=== PATIENT | female | born 1935 | race Caucasian/White ===

== ENCOUNTER 2016-12-12 12:27 | Inpatient (IN) | payer MEDICARE, MEDICAID ==
[~2016-12-12] VITALS: Ht 152.4 cm; Wt 46.8 kg
--- NOTE | ~2016-12-12 | OR ---
ADMIT: 12/12/2016 RM/LOC: 532 [facility] MR#: [id number] [address] [address] SAVITA CLARK [address] [place] [address] Operative/Delivery Room Report SEX: F AGE: 81 : 1935 SURGERY DATE: 12/14/2016 SURGEON: Sophie Maloney MD PREOPERATIVE DIAGNOSIS: Left femoral neck fracture. POSTOPERATIVE DIAGNOSIS: Left femoral neck fracture. PROCEDURE: Left hip bipolar hemiarthroplasty. JAR FILLER: BELINDA Hunter ANESTHESIA: General. ESTIMATED BLOOD LOSS: 150 mL. SPECIMEN: Bone. COMPLICATIONS: None. IMPLANT: DePuy #2 press-fit fracture stem, 41 mm bipolar head with a 1.5 mm neck length. PROCEDURE IN DETAIL: This patient was brought to the operating room. After satisfactory level of anesthesia was achieved, she was positioned on the operative table in a right lateral decubitus position. After padding of all bony prominences and an axillary roll under the right axilla, the left hip was then circumferentially prepped and draped in the usual sterile fashion. After the appropriate time-out, a lateral approach to the hip was made carrying a skin incision to the base of the greater trochanter proximal to the trochanter and dissection was then carried through the subcutaneous tissue and the tensor fascia was opened. The anterior third of the abductors were then removed from the greater trochanter using subperiosteal dissection. The capsule was split superiorly and then this flap of soft tissue was reflected anteriorly off the femoral neck. The femoral head was removed from the acetabulum, and the acetabulum irrigated of all bone debris. The head measured 41 mm. Our initial neck cut was made. Then, using the flexible reamers, I opened the femoral canal not really cutting any cortex until I got about 12 mm and then very little with 13 mm. I then used a rigid reamer and tried both a #1 femoral broach and a #2 femoral broach. The #2 femoral broach gave us the best fill of the proximal femur was very tight. I used a calcar reamer to ream the calcar. Then using a 1.5 neck length and a 41 mm head, I reduced the hip and found it ADMIT: 12/12/2016 RM/LOC: 532 [facility] MR#: [id number] [address] [address] [place] [address] Operative/Delivery Room Report SEX: F AGE: 81 : 1935 to be very stable. There was good soft tissue tension. I could distract the hip from the acetabulum a couple millimeters. I then dislocated my trial, removed all trial components, thoroughly irrigated the hip, then seated a #2 press-fit fracture stem with a 41 mm bipolar and a 1.5 neck length. Once again, the hip was reduced, found to be very stable throughout a full range of motion. Then, the capsule superiorly was closed with interrupted #5 Ethibond. The abductors repaired with #5 Ethibond through bone tunnels in the trochanter. A drain was placed deep to the tensor fascia and the tensor fascia closed with a combination of interrupted #1 Vicryl and running #2 Quill suture. Subcutaneous tissue was then reapproximated with 2-0 Vicryl, the skin with javier. After sterile dressing was applied to the wound, the patient was then transferred from the operative suite in stable condition. Sophie Maloney MD/ sheree JOB #: [id number] CC: Nikhil Fontenot, Attending Physician Nikhil Fontenot, Family Physician
--- NOTE | ~2016-12-12 | ECH ---
Transthoracic Echocardiography Report (TTE) Demographics Patient Name SAVITA CLARK Date of Study 12/13/2016 Patient Number [id number] Visit Number [id number] Date of 1935 Room Number 302 Gender Female Number Age 81 year(s) Referring Corie Obrien Mail Officer Mary Jodi [facility] Physician Trevor Yates MD Physician Interpreting Miles MCKINNEY [facility] Physician Williams Supervising Ordering King Corey Marcelo MD, MD/MLP Physician Nurse Stress Tumbler Drier Operator Conclusions Contractility Score Summary At rest the following contractility abnormalities were noted: Hypokinesis of the Mid herb-lateral, the Mid anterior, the Mid herb-septal, the Mid infero-septal, the Basal herb-septal, the Basal infero-septal, the Apical anterior, the Basal anterior and the Basal herb-lateral segments; Akinesis of the Mid inferior, the Mid infero-lateral, the Basal infero-lateral, the Apical inferior, the Apical septal, the Apical lateral, the Basal inferior and the Apical cap segments. Summary Technically difficult exam to perform, patient supine with left hip fracture. Images obtained are of fair quality. The estimated left ventricular ejection fraction is 25-30%. Segmental wall motion abnormalities noted. The left ventricle is mildly dilated . Mild concentric left ventricular hypertrophy. Diastolic function indeterminate due to patient's arrhythmia. The left atrium is severely dilated by LA volume index measurement. Mild mitral regurgitation by color Doppler. There is mild aortic regurgitation by color Doppler. Mild tricuspid regurgitation by color Doppler. There is moderate pulmonary hypertension. The pulmonary pressure (RVSP) is 59 mmHg. Recommendation The patient was given the results of the exam during their hospital stay. Procedure Type of Study TTE procedure:Echo Complete SF. Procedure Date Date: 12/13/2016 Start: 12:00 AM Technical Quality: Fair due to patient immobility. Indications:Pre surgical clearance, cardiomyopathy, unspecified and Congestive heart failure. Appropriate Use Criteria: 9 Height: 60 inches Weight: 95 pounds BSA: 1.36 m Rhythm: Within normal limits HR: 93 bpm BP: 153/65 mmHg M-Mode/2D Measurements LV Diastolic Dimension: 5.42 cm LV Systolic Dimension: 4.45 cm LV Septum Diastolic: 0.97 cm LV PW Diastolic: 1.07 cm AO Root Dimension: 2.5 cm Cardiac Output: 3.04 l/min LA Dimension: 4.39 cm Cardiac Index: 2.24 l/min*m LA volume index: 60 ml/m LVOT: 1.65 cm RV Base: 3.17 cm LVOT VTI: 15.29 cm RV Mid: 2.47 cm LV Stroke volume: 32.68 ml LV Stroke volume index: 24.03 ml/m Doppler Measurements AV Peak Velocity: 1.26 m/s MV Peak E-Wave: 1.22 m/s AV Peak Gradient: 6.35 mmHg AV Mean Gradient: 2.87 mmHg LVOT Peak Velocity: 0.86 m/s AV Area (Continuity):1.37 cm PV Peak Velocity: 1.03 m/s TR Velocity:3.69 m/s PV Peak Gradient: 4.22 mmHg TR Gradient:54.46 mmHg Estimated PASP: 59.46 mmHg Estimated RAP:5 mmHg Estimated RVSP: 59 mmHg RA Area: 16.06 cm Findings Left Ventricle The left ventricle is mildly dilated . Mild concentric left ventricular hypertrophy. Diastolic function indeterminate due to patient's arrhythmia. Right Ventricle Normal right ventricle structure and function. Left Atrium The left atrium is severely dilated by LA volume index measurement. Right Atrium Normal right atrial size. Mitral Valve Mild mitral annular calcification. Mild mitral regurgitation by color Doppler. Aortic Valve The aortic valve is mildly sclerotic. There is mild aortic regurgitation by color Doppler. Tricuspid Valve Normal tricuspid valve structure and function. Mild tricuspid regurgitation by color Doppler. There is moderate pulmonary hypertension. The pulmonary pressure (RVSP) is 59 mmHg. Pulmonic Valve Normal pulmonic valve structure and function. Pericardial Effusion No evidence of pericardial effusion. Miscellaneous Visualized portions of the aortic root and ascending aorta appear normal in size. Pleural Effusion No evidence of pleural effusion. Contractility Score LV regional wall motion:(0-Non visualized 1-Normal 2-Hypokinesis 3-Akinesis 4-Dyskinesis 5-Aneurysm) Signature
[~2016-12-12 12:27] MED LIST: ACTOS DPS15 MG PO; AMOXIL-DPS500 MG PO; ASA CHILDREN'S81 MG PO; CATAPRES-T0.3 MG/24 TD; COLACE-DPS100 MG PO; COZAAR100 MG PO; CULTURELLE1 CAP PO; FLAGYL-DPS500 MG PO; GLUTOSE 1537.5 GM PO; IMODIUM DPS2 MG PO; KAYEXALATE7.5 GM/30 PO; LOPRESSOR DPS100 MG PO; MAALOX DPS30 ML PO; NEPHRO-VITE1 TAB PO; NITROSTAT0.4 MG SL; NORVASC5 MG PO; PEPCID DPS20 MG PO; PHOS-LO667 MG PO; PLAVIX75 MG PO; PRILOSEC DPS20 MG PO; RENA-VITE TABL0.8 MG PO; RENAGEL800 MG PO; RENVELA800 MG PO; TOPROL XL DPS100 MG PO; TYLENOL DPS325 MG PO; ULTRAM DPS50 MG PO; VITAMIN D31000 UNI1 PO; VITAMIN D31000 UNIT PO; ZESTRIL DPS10 MG PO; ZOCOR DPS20 MG PO; ZOFRAN4 M1 PO; ZOFRAN4 MG PO
--- NOTE | 2016-12-15 11:50 | CO ---
ADMIT: 12/12/2016 RM/LOC: 532 [facility] MR#: [id number] [address] [address] SAVITA CLARK [address] [place] [address] Consultation SEX: F AGE: 81 : 1935 DATE OF CONSULTATION: 12/13/2016 ATTENDING PHYSICIAN: Nikhil Fontenot CONSULTING PHYSICIAN: Mary Beth Murray MD REASON FOR CONSULTATION: End-stage renal disease, on hemodialysis, hyperkalemia and azotemia. HISTORY OF PRESENT ILLNESS: The patient is an 81-year-old female, who has multiple medical comorbidities. She has end-stage renal disease, for which she gets dialyzed at [facility] here in [facility]. Her last dialysis was this past Monday. She was brought to the hospital yesterday with a chief complaint of left hip pain. The events leading up are entirely clear, but workup showed a fracture of her left femur. She is planned for surgical treatment. As stated above, her last dialysis was about 4 days ago. She is noted to be hyperkalemic and azotemic with a potassium 6.1, and a BUN of 101 today. She is accompanied at the bedside by her daughter and her niece. She is nauseated. Breathing is fair. No dyspnea or chest pain. She does not make much urine. REVIEW OF SYSTEMS: A complete review of systems negative in detail except as mentioned in history of present illness above. PAST MEDICAL HISTORY: 1. Hypertension. 2. Diabetes. 3. CVA. 4. End-stage renal disease, on hemodialysis. 5. Colonic polyps. 6. Breast cancer, status post lumpectomy and radiation. 7. Cataract surgery. 8. Vaginal bleeding. ALLERGIES: NO KNOWN DRUG ALLERGIES. MEDICATIONS: Reviewed in the chart. SOCIAL HISTORY: Former smoker. Lives with her family. No ongoing tobacco, alcohol, or recreational drug use. FAMILY HISTORY: Daughter has end-stage renal disease and is on hemodialysis. PHYSICAL EXAMINATION: VITAL SIGNS: Temperature 96.3 Fahrenheit, pulse 94, blood pressure 171/79. GENERAL: She is ill appearing. HEENT: Head is nontraumatic and normocephalic. No conjunctival pallor. Oral mucosa is dry. ADMIT: 12/12/2016 RM/LOC: 532 [facility] MR#: [id number] [address] [address] SAVITA CLARK [address] [place] [address] Consultation SEX: F AGE: 81 : 1935 CHEST: Decreased breath sounds bilaterally. Poor inspiratory effort. CVS: Regular rhythm. S1 and S2 heard. No rubs, murmurs, or gallops. ABDOMEN: Soft, nontender. EXTREMITIES: No edema. 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 She has a good thrill and bruit however. LABORATORY DATA: Reviewed. BMP with sodium 136, potassium 6.1, CO2 of 23, creatinine 9.1. Hemoglobin 11.5. Calcium 8.2. ASSESSMENT AND PLAN: 1. End-stage renal disease, on hemodialysis. 2. Hypertension. 3. Azotemia. 4. Hyperkalemia. I will plan for dialysis today. 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 She was planned to see Vascular Surgery as an outpatient. I think there is a small segment of the access that we could use for her dialysis needs today. If she has any issues that make this access non-usable, she will likely need a dialysis catheter. Because of her comorbidities, she is obviously at high risk for surgery. I will plan to dialyze her hopefully prior to surgery. I will follow her for her dialysis needs during this hospitalization. Thank you for this consultation. Please do not hesitate to contact me any if questions. Mary Beth Murray MD/ sheree JOB #: [id number] CC: Nikhil Fontenot, Attending Physician Nikhil Fontenot, Family Physician
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
--- NOTE | 2016-12-15 19:28 | NUR ---
PT HAD WITNESSED 1MIN 45 SEC TONIC CLONIC SEIZURE AT 1640. SATS DROPPED TO 70'S APPLIED 15L PER MASK. PT POSTICTAL.
--- NOTE | 2016-12-16 12:49 | CO ---
ADMIT: 12/12/2016 RM/LOC: 532 [facility] MR#: [id number] [address] [address] SAVITA NAYLOR [address] [place] [address] Consultation SEX: F AGE: 81 : 1935 DATE OF CONSULTATION: 12/13/2016 ATTENDING PHYSICIAN: Nikhil Fontenot CONSULTING PHYSICIAN: Rosemary Cosme APRN TIME IN: 1320 hours. TIME OUT: 1355 hours. REASON FOR CONSULTATION: Supportive care consultation was requested by Dr. Fontenot for discussion of goals for care. HISTORY OF PRESENT ILLNESS: Mrs. Naylor is an 81-year-old female, who is well known to my service. She does have a history of end-stage renal disease for which she obtains hemodialysis 3 times per week. Additionally, her history includes heart failure with an ejection fraction of 35%-40% per echocardiogram in June of 2016, diabetes mellitus type 2, history of CVA, vascular dementia, as well as a history of uterine, cervical, and breast cancer. She has been hospitalized a total of 5 times over the course of the past year and has also been in the emergency room twice. Her last hospital stay was July 13 through July 19, 2016, when she was hospitalized with sepsis as well as heart failure. We did evaluate the patient during that time and I had extensive goals for care discussions with the patient's POA daughter, Gay Traore. At that time, the patient's daughter did decline hospice services, but did make her a do not resuscitate/do not intubate status. Over the course of the past few months, she has been living back home with her daughter. Her daughter reports that things have been going fairly well with dialysis. Unfortunately, she was readmitted on December 12 after complaining of left hip pain. Evaluation did reveal a left femoral neck fracture as well as a left inferior pubic ramus fracture and possible left pubic symphysis fracture. Due to her underlying comorbidities, she is of course a high risk for surgical intervention, however, she was evaluated and plans are in place for her to undergo surgical repair either today or tomorrow. Due to her multiple complexities, supportive care consultation was requested to discuss goals for care. In terms of advanced directives, the patient does have a POLST form on file. She is a do not resuscitate/do not intubate status. She also has healthcare svcpa-es-vioomtyb paperwork which designates her daughter, Gay Naylor whose phone #[phone] as her primary healthcare oikre-yh-uditckki for healthcare. Her daughter, Gay Carr whose phone [phone] is the secondary healthcare hvrce-qb-tgbcktko. Symptomatically, the patient appears fairly comfortable overall. She denies pain or discomfort. She does have baseline dementia. She is extremely weak and debilitated. PAST MEDICAL HISTORY: End-stage renal disease on hemodialysis, diabetes ADMIT: 12/12/2016 RM/LOC: 532 [facility] MR#: [id number] [address] [place] [address] [place] [address] Consultation SEX: F AGE: 81 : 1935 mellitus type 2 with nephropathy, hypertension, CVA, history of anemia of chronic disease, vitamin B12 deficiency, chronic gastritis, history of uterine, cervical, and breast cancer, atherosclerotic coronary vascular disease with history of chest pain. ALLERGIES: THE PATIENT HAS NO KNOWN MEDICATION ALLERGIES. CURRENT MEDICATIONS: Please see the patient's MAR for specific routes and dosages. Her current medications are as follows. 1. Senokot. 2. NovoLog. 3. Maalox. 4. Tylenol. 5. Colace. 6. Nitrostat. 7. Reglan. 8. Zofran. 9. Morphine. 10.[place]. 11.Milk of magnesia. 12.Glutose. 13.Glucagon. 14.D5 normal saline. 15.D50. 16.Normal saline. SOCIAL HISTORY: The patient is . She is [employer]. She was living at home with her daughters prior to admission. She is disabled. She does not use alcohol or tobacco. FAMILY HISTORY: Significant for diabetes and heart disease. FUNCTIONAL REVIEW: Prior to her admission, her daughter states that she could ambulate very short distances. She was needing assistance with most of her ADLs. Her palliative performance scale was around 40% to 50% prior to admission. Currently, she is bed-bound. She is total care. She is confused per baseline. Her intake is poor. Her current palliative performance score is 30%. REVIEW OF SYSTEMS: A 10-point review of systems was attempted. However, due to the patient's mentation, this is unable to be obtained. PHYSICAL EXAMINATION: GENERAL: The patient is examined in the bed. She is in no acute distress. She is receiving dialysis. VITAL SIGNS: Temperature 96.3, pulse 94, respirations 18, blood pressure 171/79, and oxygen 90% on room air. HEENT: Head is normocephalic. Her pupils are cloudy. Oral mucosa pink and moist with poor dentition. ADMIT: 12/12/2016 RM/LOC: 532 [facility] MR#: [id number] [address] [place] [address] [place] [address] Consultation SEX: F AGE: 81 : 1935 NECK: Supple. RESPIRATORY: Respirations are equal, nonlabored at rest. LUNGS: Diminished in the bases bilaterally. CARDIOVASCULAR: Rate and rhythm regular without murmurs, rubs, or gallops. 1+ bilateral lower extremity edema noted. She does have a right upper arm AV fistula with obvious aneurysm noted. GASTROINTESTINAL: Soft, nontender. Bowel sounds are positive. MUSCULOSKELETAL: Generalized weakness. INTEGUMENTARY: Skin turgor is fair. No obvious rashes or wounds noted. NEUROLOGIC: Disoriented x3. She has baseline dementia. She will follow simple commands. PSYCHIATRIC: Calm and cooperative. No agitation or delirium noted. DIAGNOSTIC DATA: Sodium 136, potassium 6.1, BUN 101, creatinine 9.1, total protein 8.5, albumin 3.1. WBC 5.3, hemoglobin 11.5, hematocrit 35.9, and platelets are 198. IMPRESSION: 1. Physical debility. 2. Dementia. 3. Fatigue. 4. Malaise. 5. Weight loss with a weight of around 104 pounds in February of 2016 and currently she is weighing anywhere from 94-95 pounds. 6. End-stage renal disease, on hemodialysis. 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 8. Left hip fracture. 9. Coronary artery disease. 10.History of cerebrovascular accident. 11.Uterine, cervical, and breast cancer history. 12.Palliative care. 13.The patient is a do not resuscitate/do not intubate. PLAN: 1. At the time of assessment, the patient is confused per baseline secondary to her dementia and unable to participate in medical decision making. I was able to meet with the patient's yfoxo-dl-jcdqqasg/daughter, Gay Traore along with other family members inside the patient's room. We reviewed the patient's overall status and goals for the time ahead. She states that she feels like her mom has done fairly well and actually was doing really good as recently as Mother's Day when she was able to participate in a family function. She states the dialysis has been going well. She does acknowledge that overall Savita does have significant debility and multiple health issues. At this time, the goal is to try to get her hip fixed and see how things go in the time ahead. I am very clear with them that she is a high risk surgical candidate and that things may not go well in the time ahead. Overall, her prognosis is poor ADMIT: 12/12/2016 RM/LOC: 532 [facility] MR#: [id number] [address] [address] SAVITA NAYLOR [address] [place] [address] Consultation SEX: F AGE: 81 : 1935 given her overall debility and history of hip fracture with underlying dementia. We have talked hospice in the past and the patient's daughter has not been ready for this. She states that her mom recently has told her that she wants to continue dialysis, however, I do question if the patient has the insight to be able to direct what she wants in terms of her medical care. The patient's daughter does agree to ongoing discussions in the time ahead and recognizes that things may not go as they hope. We will continue to follow along and discuss goals for care pending the patient's status. 2. The patient is a do not resuscitate/do not intubate status and this is accurate on the chart. 3. Pending how she does in the time ahead, the patient's POA states that they may be open to placement on discharge, which I would certainly recommend given her overall debility. She will likely have increased care needs with her surgical intervention. We will see how things go here in the days ahead and establish goals once we know what the patient's new baseline will be. We would like to thank Dr. Fontenot for the invitation to participate in this patient's care. Total consultation time was 35 minutes from 1320 hours to 1355 with 15 minutes from 1325 hours to 1340 hours spent [id number] with the patient and family discussing goals for care and providing counseling and support. We will continue to follow along. Rosemary Cosme APRN/ sheree JOB #: [id number] CC: Nikhil Fontenot, Attending Physician Nikhil Fontenot, Family Physician
--- NOTE | 2016-12-21 17:26 | EEG ---
ADMIT: 12/12/2016 RM/LOC: 302 [facility] MR#: [id number] 2620 [facility] [address] [place] [phone] SAVITA CLARK [address] [place] [address] Inpatient EEG SEX: F AGE: 81 : 1935 DATE: 12/16/2016 EEG NUMBER: [id number] REASON FOR EEG: Generalized tonic-clonic seizure. Hesham Gutierrez MD/ sheree JOB #: [id number] CC: Nikhil Fontenot MD, Attending Physician Nikhil Fontenot MD, Family Physician
[2016-12-23] MEDS ORDERED: PROTONIX40 MG PO (11:41)
[2016-12-23] MEDS ORDERED: SENOKOT S1 TAB PO (11:42)
[2016-12-23] MEDS ORDERED: HEPARIN5000 UNITS SQ (11:42)
[2016-12-23] MEDS ORDERED: HYDROCODON-ACE1 EAC4 PO (11:43)
[2016-12-23] MEDS ORDERED: MILK OF MAGNESI10 ML PO (11:43)
[2016-12-23] MEDS ORDERED: FLEET ENEMA133 ML PR (11:44)
[2016-12-23] MEDS ORDERED: DULCOLAX-DPS10 MG PR (11:44)
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
--- NOTE | 2017-01-05 15:53 | EEG ---
ADMIT: 12/12/2016 RM/LOC: 302 [facility] MR#: [id number] [address] [place] [place], [place] [address] SAVITA CLARK [address] [place] [address] Inpatient EEG SEX: F AGE: 81 : 1935 DATE: 12/16/2016 EEG NUMBER: [id number] REASON FOR EEG: Seizure. HISTORY OF PRESENT ILLNESS: The patient is an 81-year-old woman with history of generalized tonic-clonic seizure and history of strokes as well as encephalopathy. This is a routine 21-channel digital EEG recording performed on uncooperative patient, who was awake throughout the study. The study is performed using the 10/20 international electrode placement system. Throughout the study, the background is fairly well organized consisting of regular and fairly symmetric medium amplitude 6 hertz activity seen posteriorly. This seems to attenuate with eye opening. There were no focal slowing nor epileptiform discharges in this recording. Hyperventilation was not performed secondary to clinical condition. Photic stimulation performed at 1 to 33 hertz frequency elicited bilateral occipital driving response. The majority of the study is degraded by muscle motion artifacts, electrode pops as well as disconnection of the whole system from the recording. IMPRESSION: This is abnormal awake EEG recording secondary to slowing of the posterior background rhythm, which is suggestive of moderate encephalopathy. Again, great portion of the study was degraded by technical artifacts. Hesham Gutierrez MD/ jakel JOB #: [id number] CC: Nikhil Fontenot MD, Attending Physician Nikhil Fontenot MD, Family Physician
--- NOTE | 2017-01-09 10:14 | PR ---
ADMIT: 12/12/2016 RM/LOC: 532 [facility] MR#: [id number] [address] [address] SAVITA CLARK [address] [place] [address] Progress Note SEX: F AGE: 81 : 1935 DATE: 12/13/2016 SUBJECTIVE: The patient is awake today, although she is confused. She states that, she is in no pain, although she says that, she has been nauseous. She has family in the room today including a niece, Gem, and her daughter, Eugenie. We spoke to them about Savita's condition and how it will likely require surgery. We had a lengthy discussion talking about the risks specific to Savita, including her decreased cardiac and renal function. It was relayed to the family that although this surgery has a high mortality rate, if we do not do anything, then mortality is certain. The team and family are in agreement that if a surgery is possible, it is the best course of action for Savita. OBJECTIVE AND PHYSICAL EXAMINATION: HEART: Exhibits normal rate and rhythm. No murmurs, rubs, or gallops. LUNGS: Clear to auscultation bilaterally. No rales or wheezes. ABDOMEN: Soft, nontender, and nondistended. EXTREMITIES: Great pain is elicited upon movement or transport of the patient in the left hip. DIAGNOSTIC DATA: Echocardiogram today demonstrated an ejection fraction of about 35%. ASSESSMENT: Savita Clark is an 81-year-old female with a history of end-stage renal disease and heart failure with an ejection fraction of 35%. PLAN: Savita Clark is not a good surgical candidate at this time. She is receiving preop dialysis today. Cardiology and Surgery are on board. There has been discussion of general anesthesia versus epidural. We will await further recommendations from Surgical and Anesthesia teams at this time. Jewel Fernandez, M3 Student / Nikhil Fontenot MD / sheree JOB #: [id number] CC: Nikhil Fontenot, Attending Physician Nikhil Fontenot, Family Physician
--- NOTE | 2017-02-01 12:37 | DS ---
ADMIT: 12/12/2016 RM/LOC: 302 [facility] MR#: [id number] [address] [place], [place] [address] EDUARDO, SAVITA [address] [place] [address] General Discharge Summary SEX: F AGE: 81 : 1935 ADMISSION DATE: 12/12/2016 DISCHARGE DATE: 12/21/2016 ADMITTING DIAGNOSIS: As per history and physical. FINAL DIAGNOSES: 1. Fracture of the left hip/left femoral neck fracture. 2. Status post old pelvic fracture. 3. End-stage kidney disease, on hemodialysis. 4. Metabolic encephalopathy. 5. Hypotension. 6. Chronic systolic congestive heart failure. 7. Acute post hemorrhagic anemia superimposed on anemia of chronic disease. 8. Chronic cerebrovascular disease. 9. Vascular dementia. 10.Atherosclerotic coronary vascular disease. 11.Hyperkalemia. 12.Type 2 diabetes. 13.Seizure disorder. 14.Ischemic cardiomyopathy. 15.Anemia on chronic kidney disease. 16.Osteoporosis/renal osteodystrophy. 17.Fall with subsequent hip fracture. 18.Chronic hemodialysis. 19.Marked age and dementia-related debility. PROCEDURES: 1. Open reduction and internal fixation of fractured left hip on 12/14/2016. 2. Hemodialysis throughout the course of her hospital stay. 3. Transfused with packed cells on 12/18/2016. COMPLICATIONS: None. CLINICAL HISTORY: The patient is a very frail 81-year-old female, admitted to [facility] after being seen in the ER complaining of left hip pain. The patient had fallen at home the previous day and was unable to walk or bear weight. So, family brought her to the emergency room. X-rays in the ER showed a left femoral neck fracture. She is admitted for orthopedic consultation and planned open reduction and internal fixation. She is extremely a high risk surgical candidate because of her coronary artery disease, chronic systolic heart failure, as well as her end-stage renal disease and need for chronic hemodialysis. For further details of her clinical history as well as past medical history and pertinent findings on physical exam, please see dictated history and physical. Please also see dictated Orthopedic consultation by Dr. Maloney, Nephrology consultation by Dr. Murray, Cardiology consultation by Dr. Aqiuno, and Palliative Care consult by Dr. Benton. LABORATORY AND X-RAY SUMMARY FROM THIS ADMISSION: For complete details of ADMIT: 12/12/2016 RM/LOC: 302 [facility] MR#: [id number] [address] [address] SAVITA CLARK [facility] [place] [address] General Discharge Summary SEX: F AGE: 81 : 1935 lab, please see cumulative laboratory summary included in the chart. On admission, her white count was 6300, hemoglobin was 11.5, hematocrit 35.8. Hemoglobin dropped to 10.9 on 12/14/2016. Hemoglobin dropped to 8.0 on 12/16/2016. She was then transfused. Hemoglobin at discharge was 8.2, hematocrit 26.1. CBCs were followed on a serial daily basis. On admission, her INR was 10.8, ProTime was 1.04, PTT was normal. Urinalysis on admission showed 2+ blood, negative nitrites, 3+ leukocyte esterase. The patient essentially has anuric renal failure. On admission, her sodium was 138, potassium 4.9, BUN was 85 with a creatinine of 8.5, blood sugar was 136, potassium leslye to 6.1 on 12/13/2016. Following dialysis on 12/13/2016, her BUN was 44, creatinine was 5.5, potassium dropped to 4.9. The patient's dialysis was managed throughout her hospital stay by Dr. Murray. At discharge, her sodium was 138, potassium 3.4, BUN was 25, creatinine 4.5. Fingerstick blood sugars were monitored q.i.d. because of her type 2 diabetes. Blood sugars ranged from a low of 93 to a high of 206 during this hospitalization. Blood gases done on 12/15/2016 showed a pH of 7.36, pCO2 of 38, pCO2 of 65. Vancomycin levels were monitored while she was on IV vancomycin. Her Keppra level was high at 36. Vitamin D level was quite low at 7.6. Blood cultures drawn during this hospitalization showed no growth. Urine culture grew out sparse multiple organisms, none significant. The patient did receive a unit of packed cells on 12/18/2016. Her blood is noted to be B positive. She does have an anti C antibody, positive antibody screen noted. X-ray studies included a head CT done on 12/15/2016. Her CT of the head showed extensive chronic small vessel ischemic changes of cerebrovascular disease with no evidence of acute stroke or bleed. Her chest x-rays showed some changes of senile emphysema with chronic fibrotic change. No acute infiltrates. Her initial hip x-ray in the ER showed a left femoral neck fracture. She also had an old left inferior pubic ramus fracture with nonunion of her old pelvic fractures. Postoperatively, her chest x-ray showed mild cardiomegaly without congestive heart failure. Her echocardiogram showed an ejection fraction of 25% to 30%. Multiple segmental wall motion abnormalities. Left ventricle is mildly dilated. She has concentric left ventricular hypertrophy with diastolic dysfunction. Mild mitral regurgitation, mild aortic regurgitation, mild tricuspid regurgitation with moderate pulmonary hypertension. The patient did have an EEG performed because of a generalized tonic-colonic seizure. She had an abnormal EEG with diffuse slowing of the posterior background rhythm suggestive of encephalopathy. Her resting EKG showed her to be in a sinus rhythm with old inferior infarct with LVH with some diffuse ST-T wave changes. HOSPITAL COURSE: The patient was admitted with her hip fracture. Dr. Maloney was consulted. Because of her being a high risk surgical candidate, we also obtained a Cardiology consultation as well as Nephrology consultation. We involved supportive care from the onset of this admission since there was question how aggressive to be with this woman with severe vascular dementia with end-stage renal disease. She was felt to be a poor operative candidate, but her family wanted us to pursue getting her hip fixed. The patient was ultimately taken to the OR on 12/14/2016, where she had an open reduction and ADMIT: 12/12/2016 RM/LOC: 302 [facility] MR#: [id number] [address] [address] SAVITA CLARK [address] [place] [address] General Discharge Summary SEX: F AGE: 81 : 1935 internal fixation with transfemoral nailing. She ultimately had open reduction and internal fixation with bipolar hip prosthesis. The patient tolerated her surgery reasonably well. She was placed in the ICU postoperatively. Her fluid balance was monitored closely. She had significant cognitive dysfunction and at one point, had what appeared to be a tonic-colonic seizure and was felt to have a metabolic encephalopathy. Head CT at that time showed no evidence of acute stroke. She was placed on Keppra because of her seizure. Dr. Gutierrez was consulted. It took several days for her mental status to clear back to her baseline postoperatively, but ultimately she did return to her postoperative status. She was treated with IV vancomycin for possible sepsis. No obvious focus of infection was ever identified ultimately, she stabilized and was felt to be able to get out of the ICU, although she did require pressor support for several days. We did give her 1 unit of packed cells on 12/18/2016 following which we were able to get her off pressors. Ultimately, the patient stabilized enough. We were able to dismiss her to [facility]. The patient was transferred to [facility] on 12/21/2016 on her 10th hospital day, her 7th postoperative day. At the time of discharge, her hemoglobin was 8.2, creatinine was 4.5. She was on Keppra for seizure prophylaxis. MEDICATIONS: Her medications at dismissal were to include: 1. Omeprazole 20 mg daily. 2. Senokot one b.i.d. 3. Heparin 5000 units subcu q.12 hours for 14 days for DVT prophylaxis. 4. Colace 100 mg b.i.d. 5. Lortab 5/325 one every 4 hours for pain. 6. Milk of magnesia p.r.n. constipation. 7. Tylenol 650 mg every 4 hours p.r.n., minor discomfort. Not to exceed 3 g per day. 8. Nitrostat sublingual p.r.n. chest discomfort. 9. Baby aspirin 81 mg daily. 10.Cholecalciferol 1000 units daily. 11.Docusate sodium 100 mg daily. 12.Famotidine 20 mg daily. 13.Imodium 2 mg every 2 to 4 hours p.r.n. diarrhea. 14.PhosLo 667 mg three tablets t.i.d. 15.Actos 15 mg daily. 16.Probiotic once daily. 17.Roxana-Herlinda one daily. ADMIT: 12/12/2016 RM/LOC: [address] [place] [address] MR#: [id number] [id number] [place] [id number] [place] [address] General Discharge Summary SEX: F AGE: 81 : 1935 18.Renvela 1600 mg t.i.d. 19.Atorvastatin 10 mg at bedtime. 20.Tramadol 50 mg every 6 hours p.r.n. pain. 21.Keppra 500 mg one daily. The patient will be a no code, do not resuscitate at the long-term. She is to have her blood sugars monitored twice daily at the long-term as well. CONDITION AT DISCHARGE: Stable. LONG-TERM PROGNOSIS: Extremely poor in view of her multiple comorbid medical conditions. She is to continue her usual dialysis days Monday, Monday, and Monday at [facility] [place]. Nikhil Fontenot MD/ sheree JOB #: [id number] CC: Nikhil Fontenot MD, Attending Physician Nikhil Fontenot MD, Family Physician
--- NOTE | 2017-03-01 13:37 | HP ---
ADMIT: 12/12/2016 RM/LOC: 302 [facility] MR#: [id number] [address] [address] SAVITA CLARK [address] [place] [address] History and Physical SEX: F AGE: 81 : 1935 DATE OF SERVICE: 12/12/2016 CONSULTING PHYSICIANS: Sophie Maloney MD; Mary Beth Murray MD; Williams Aquino MD, as well as Que Benton MD with supportive care. CHIEF COMPLAINT: Left hip pain. CLINICAL HISTORY: The patient is a very debilitated, frail 81-year-old female, who was brought to the ER by her family because she was unable to walk or bear weight on her left hip. She apparently had fallen at a family gathering on the previous day. The family had helped her up, and she remained in the chair the remainder of the day. She had to be helped to bed, but after they tried to get her up on the morning of 12/12/2016, they were unable to get her up because of the severe pain in her hip and her inability to bear weight. For this reason, they brought her to the ER, where she was evaluated by Dr. Campos. The patient has an extensive complicated medical history related to her longstanding type 2 diabetes. She does have end-stage renal disease and is on hemodialysis. She also has extensive cardiac history as well as significant history of cerebrovascular disease and vascular dementia. Her evaluation in the ER revealed a fracture of the left hip and is admitted at this time for orthopedic consultation. The patient is felt to be extremely poor medical risk because of her end-stage renal disease, coronary artery disease, and cerebrovascular disease. For that reason, additional Cardiology and Nephrology consultation have been obtained at the time of admission. PAST MEDICAL HISTORY: Unable to obtain any of the past medical history from the patient due to her severe dementia. Her medical problems are noted to include: 1. End-stage renal disease, on hemodialysis. 2. Type 2 diabetes with diabetic nephropathy. 3. Hypertension. 4. Cerebrovascular disease with history of prior cerebrovascular accident. 5. Vascular dementia. 6. Anemia of chronic disease. 7. Vitamin B12 deficiency. 8. Chronic gastritis. 9. History of cervical cancer. 10.History of breast cancer. 11.Atherosclerotic coronary vascular disease. 12.Ischemic cardiomyopathy. 13.Chronic diastolic heart failure. CURRENT MEDICATIONS: Include: 1. Omeprazole 20 mg daily. 2. Senokot b.i.d. 3. Lortab p.r.n. pain. 4. Milk of magnesia p.r.n. constipation. 5. Baby aspirin 81 mg daily. ADMIT: 12/12/2016 RM/LOC: 302 [facility] MR#: [id number] [address] [address] [place] [address] History and Physical SEX: F AGE: 81 : 1935 6. Nitrostat sublingual p.r.n. 7. Cholecalciferol 1000 units daily. 8. Docusate sodium 100 mg daily. 9. Pepcid 20 mg daily. 10.Imodium 2 mg p.r.n. diarrhea. 11.PhosLo 667 mg 3 tablets t.i.d. 12.Actos 15 mg daily. 13.Probiotic 1 daily. 14.Roxana-Herlinda 1 daily. 15.Renvela 1600 mg t.i.d. 16.Atorvastatin 10 mg at bedtime. 17.Tramadol p.r.n. pain. ALLERGIES: THE PATIENT HAS NO KNOWN ALLERGIES. SOCIAL HISTORY: The patient is a . She currently resides with her daughter. The patient is disabled. She is on hemodialysis. She goes to the dialysis center 3 days a week, Monday, Monday, and Monday. She is a former smoker. She does not consume alcoholic beverages. No history of illicit drug use. FAMILY HISTORY: Significant for diabetes and heart disease. REVIEW OF SYSTEMS: Unable to obtain any review of systems at this time due to the patient's severe dementia and cognitive impairment. She also is sedated with pain medications that she received in the ER for her hip pain. PHYSICAL EXAMINATION: VITAL SIGNS: Her temperature is 96.3, pulse 94, respirations 18, blood pressure 171/79, and O2 saturation 90% on room air. GENERAL: The patient is a very frail, debilitated 81-year-old female, who appears older than her stated age. HEENT: Reveals her hearing to be impaired. Ears are clear. Vision is impaired. The patient appears to have bilateral cataracts with clouding of her pupils. Her oral mucosa is pink and moist. No oral lesions. She is edentulous. NECK: Supple. Thyroid not enlarged. No cervical adenopathy. No neck vein distention. LUNGS: Noted to be clear, but she is diminished throughout. HEART: Noted to have a regular rhythm. No murmurs. No lifts, thrills, or heaves. Her failure appears to be well compensated. Do note she has an AV fistula in her right upper extremity with loud bruit for her hemodialysis. ABDOMEN: Soft and nontender. Bowel sounds normoactive. EXTREMITIES: She has shortening and external rotation of her left lower extremity. She has generalized sarcopenia with muscle wasting and weakness. The patient is unable to stand at this time. SKIN: Noted to have no obvious rashes or any areas of skin breakdown. No pressure ulcers. NEUROLOGIC: She is disoriented x3. She has significant dementia. She also ADMIT: 12/12/2016 RM/LOC: 302 [facility] MR#: [id number] [address] [address] SAVITA CLARK [facility] [place] [address] History and Physical SEX: F AGE: 81 : 1935 has significant language barrier since she does not speak or understand Setswana. She is able to follow simple commands, but is disoriented to time, place, and person. No new focal deficits noted. ASSESSMENT AT TIME OF ADMISSION: 1. Fracture of the left hip. 2. Osteoporosis/renal osteodystrophy. 3. End-stage renal disease, on hemodialysis. 4. Hypertension. 5. Hyperlipidemia. 6. Longstanding type 2 diabetes. 7. Generalized osteoarthritis. 8. Anemia of chronic disease. 9. Atherosclerotic coronary vascular disease. 10.Ischemic cardiomyopathy. 11.Cerebrovascular disease with history of prior stroke. 12.Severe visual impairment. 13.Past history of breast carcinoma, clinically no evidence of disease. 14.Past history of cervical cancer, clinically no evidence of disease. 15.Marked debility related to her end-stage renal disease and advanced age. PLAN: Plan is to admit the patient. The patient was admitted to the medical floor for orthopedic consultation. Dr. Maloney is to see her in consultation. As noted, she is an extremely high risk surgical patient due to her end-stage renal disease and coronary artery disease. We will ask [facility] Cardiology to see and clear her from a cardiac standpoint. We will ask Dr. Murray to see and manage her inpatient hemodialysis. We will also get supportive care consult to help establish long-term treatment goals. Do note that the patient is no code/do not resuscitate, but the family does want us to proceed with surgical intervention if that will lessen her pain. Nikhil Fontenot MD/ sheree JOB #: [id number] CC: Nikhil Fontenot MD, Attending Physician Nikhil Fontenot MD, Family Physician
[2017-03-11] MEDS ORDERED: NORCO 5-325 TA1 EACH PO (10:12)
[2017-03-11] MEDS ORDERED: LIPITOR DPS10 MG PO (10:13)
[2017-03-11] MEDS ORDERED: ASPIR 8181 MG PO (10:13)
[2017-03-11] MEDS ORDERED: KEPPRA DPS500 MG PO (10:13)
[2017-03-11] MEDS ORDERED: PEPCID DPS20 MG PO (10:13)
[2017-03-11] MEDS ORDERED: PIOGLITAZONE HC15 MG PO (10:14)
[2017-03-11] MEDS ORDERED: ACIDOPHILUS LACT1 GM PO (10:14)
[2017-03-11] MEDS ORDERED: PRILOSEC DPS20 MG PO (10:14)
[2017-03-11] MEDS ORDERED: VITAMIN D1000 UNIT PO (10:15)
== END 2016-12-21 13:15 | DRG 956 ==
LOC: ER 12:27 → 3ICU 15:00 → 5MS 15:00 → 3ICU 12-15 17:17
PROVIDERS: ADMIT Family Medicine
PROC: 5A1D60Z (ICD-10-PCS; 2016-12-13)
PROC: 0SRS0JA Replacement of Left Hip Joint, Femoral Surface with Synthetic Substitute, Uncemented, Open Approach (ICD-10-PCS; principal; 2016-12-14)
PROC: 30233N1 Transfusion of Nonautologous Red Blood Cells into Peripheral Vein, Percutaneous Approach (ICD-10-PCS; 2016-12-18)
DX: S72.002A Fracture of unspecified part of neck of left femur, initial encounter for closed fracture (principal); S32.512A Fracture of superior rim of left pubis, initial encounter for closed fracture; I13.2 Hypertensive heart and chronic kidney disease with heart failure and with stage 5 chronic kidney disease, or end stage renal disease; G93.41 Metabolic encephalopathy; N18.6 End stage renal disease; I95.9 Hypotension, unspecified; T82.898A Other specified complication of vascular prosthetic devices, implants and grafts, initial encounter; I50.22 Chronic systolic (congestive) heart failure; D62 Acute posthemorrhagic anemia; I67.9 Cerebrovascular disease, unspecified; I25.119 Atherosclerotic heart disease of native coronary artery with unspecified angina pectoris; E87.5 Hyperkalemia; E11.22 Type 2 diabetes mellitus with diabetic chronic kidney disease; G40.909 Epilepsy, unspecified, not intractable, without status epilepticus; J45.909 Unspecified asthma, uncomplicated; I25.5 Ischemic cardiomyopathy; D63.1 Anemia in chronic kidney disease; M81.0 Age-related osteoporosis without current pathological fracture; F01.50 Vascular dementia, unspecified severity, without behavioral disturbance, psychotic disturbance, mood disturbance, and anxiety; W19.XXXA Unspecified fall, initial encounter; Z99.2 Dependence on renal dialysis; Z86.73 Personal history of transient ischemic attack (TIA), and cerebral infarction without residual deficits; Z85.3 Personal history of malignant neoplasm of breast; Z87.891 Personal history of nicotine dependence; Z85.41 Personal history of malignant neoplasm of cervix uteri; Z85.42 Personal history of malignant neoplasm of other parts of uterus; Z66 Do not resuscitate